=== PATIENT | female | born 1955 | race Two or more races ===

== ENCOUNTER 2021-04-09 20:26 | Emergency (ER) | payer MEDICARE, BC ==
[~2021-04-09] VITALS: Ht 165.1 cm; Wt 65.3 kg
--- NOTE | 2021-04-09 20:31 | NUR ---
PT FALGUNI FROM SNF C/O UNWITNESSED FALL. SNF REQUESTING FOR CT AND XRAY OF R TOE. PT PLACED IN BED 10 ON MONITOR AND PULSE OX. VSS. AWAITING ER MD FOR EVAL AND ORDERS.
--- NOTE | 2021-04-09 20:45 | NUR ---
PEEL OVEN TENDER AT BEDSIDE FOR BLOOD WORK.
[2021-04-09 20:57] LABS: EOSINOPHILS % (AUTO) 6.5 % (0.0-6.0); HEMATOCRIT 34 % (33-45); HEMOGLOBIN 11.4 g/dL (11.5-14.8); LYMPHOCYTES # (AUTO) 1.8 K/uL (0.8-4.8); LYMPHOCYTES % (AUTO) 34.8 % (20.0-44.0); MEAN CORPUSCULAR HGB CONC 33 g/dl (31.0-36.0); MEAN CORPUSCULAR VOLUME 93 fL (82-100); MONOCYTES # (AUTO) 0.5 K/uL (0.1-1.30); MONOCYTES % (AUTO) 10.1 % (2.0-12.0); NEUTROPHILS # (AUTO) 2.4 K/uL (1.8-8.9); NEUTROPHILS % (AUTO) 47.6 % (43.0-81.0); PLATELET COUNT (AUTO) 223 K/uL (150-450); WHITE BLOOD COUNT (AUTO) 5.1 K/uL (4.3-11.0)
[2021-04-09 21:04] LABS: CALCIUM, SERUM 10.5 mg/dL (8.5-10.1); CREATININE 0.6 mg/dL (0.6-1.3); POTASSIUM 3.6 mmol/L (3.5-5.1)
--- NOTE | 2021-04-09 22:03 | NUR ---
TRANSPORT CALLED [facility] 30 MINS.
--- NOTE | 2021-04-09 22:08 | NUR ---
CALLED [facility], SPOKE TO RIC RIZZO FOR UPDATE. AWARE PT WILL BE DISCHARGED.
--- NOTE | 2021-04-09 22:32 | NUR ---
SPOKE TO MR KIRBY () REGARDING UPDATE.
--- NOTE | 2021-04-09 23:14 | NUR ---
PT WAS PICKED UP BY [facility] AND TRANSFERRED BACK TO THE FACILITY IN STABLE CONDISION
[2021-04-09 23:48] VITALS: BP 116/72
== END 2021-04-09 23:48 | disposition home or self-care (01) ==
LOC: ER 20:28
DX: S09.8XXA Other specified injuries of head, initial encounter (principal); M79.675 Pain in left toe(s); I48.91 Unspecified atrial fibrillation; E11.9 Type 2 diabetes mellitus without complications; Z91.013 Allergy to seafood; W19.XXXA Unspecified fall, initial encounter; Y93.89 Activity, other specified; Y92.89 Other specified places as the place of occurrence of the external cause; Y99.8 Other external cause status
CPT/HCPCS: 36415; 70450-TC; 71045-TC; 72125-TC; 73660-TC; 80048-TC; 85025-TC; 85730-TC

== ENCOUNTER 2021-04-24 14:57 | Inpatient (IN) | payer MEDICARE, BC ==
[~2021-04-24] VITALS: Ht 165.1 cm; Wt 64.9 kg
[2021-04-24] MEDS ORDERED: ACET650S26 GT (15:49)
[2021-04-24] MEDS ORDERED: AMIN30LI2 GT (15:49)
[2021-04-24] MEDS ORDERED: MULT-754 GT (15:49)
[2021-04-24] MEDS ORDERED: SENN-291 GT (15:49)
[2021-04-24] MEDS ORDERED: METO-295 GT (15:49)
[2021-04-24] MEDS ORDERED: BUSP5TAB3 GT (15:49)
[2021-04-24] MEDS ORDERED: ASCO-352 GT (15:49)
[2021-04-24] MEDS ORDERED: ASPI-992 GT (15:49)
[2021-04-24] MEDS ORDERED: BISA10SU61 RC (15:49)
[2021-04-24] MEDS ORDERED: LEVE100S GT (15:49)
[2021-04-24] MEDS ORDERED: HEPA500013 SQ (15:49)
[2021-04-24] MEDS ORDERED: HYDR-4303 GT (15:49)
[2021-04-24] MEDS ORDERED: POLY17PO4 GT (15:49)
[2021-04-24] MEDS ORDERED: ALBU18HF2 INH (15:49)
[2021-04-24] MEDS ORDERED: LACT10SO3 GT (15:49)
[2021-04-24] MEDS ORDERED: NA P133E RC (15:49)
[2021-04-24] MEDS ORDERED: METO50TA16 GT (15:49)
[2021-04-24] MEDS ORDERED: OMEP20CA15 GT (15:49)
[2021-04-24] MEDS ORDERED: PSYLLIUM HUSK GT (15:52)
[2021-04-24] MEDS ORDERED: potassium chloride GT (15:52)
--- NOTE | 2021-04-24 16:00 | NUR ---
TO ER BED 4, PLACED ON A GOWN AND MONITOR, AWAITING MD EVAL. MORRISON
--- NOTE | 2021-04-24 16:27 | NUR ---
DR HAGER AT BEDSIDE, WAITING FOR FURTHER ORDERS
[2021-04-24 17:12] LABS: BASOPHILS # (AUTO) 0.1 K/uL (0.0-0.2); BASOPHILS % (AUTO) 0.8 % (0.0-2.0); EOSINOPHILS % (AUTO) 3.3 % (0.0-6.0); HEMATOCRIT 33 % (33-45); HEMOGLOBIN 11.2 g/dL (11.5-14.8); LYMPHOCYTES # (AUTO) 1.4 K/uL (0.8-4.8); LYMPHOCYTES % (AUTO) 15.2 % (20.0-44.0); MEAN CORPUSCULAR HGB CONC 34 g/dl (31.0-36.0); MEAN CORPUSCULAR VOLUME 93 fL (82-100); MONOCYTES # (AUTO) 0.8 K/uL (0.1-1.30); NEUTROPHILS # (AUTO) 6.9 K/uL (1.8-8.9); NEUTROPHILS % (AUTO) 72.7 % (43.0-81.0); PLATELET COUNT (AUTO) 265 K/uL (150-450); RED BLOOD CELL COUNT(AUTO) 3.54 MIL/uL (4.0-5.2); WHITE BLOOD COUNT (AUTO) 9.5 K/uL (4.3-11.0)
[2021-04-24 17:20] LABS: CALCIUM, SERUM 10.2 mg/dL (8.5-10.1); CREATININE 0.7 mg/dL (0.6-1.3); POTASSIUM 3.9 mmol/L (3.5-5.1)
[2021-04-24] MEDS ORDERED: IV NS 0.9% 500 ML IV ONE (18:00)
--- NOTE | 2021-04-24 18:26 | NUR ---
CALLED DR. TODD [phone] X [phone]
--- NOTE | 2021-04-24 18:48 | NUR ---
covid 19 swab collected and sent to lab.
--- NOTE | 2021-04-24 18:51 | NUR ---
BED ASSIGNED= 107
--- NOTE | 2021-04-24 19:21 | NUR ---
TRY TO GIVE REPORT TO TELE 107 BUT RN STILL BUSY ON ENDORSEMENT WILL TRY AGAIN LATER
[2021-04-24] MEDS ORDERED: HYDROCODONE/APAP 5/325MG TABLET GT PRN (19:30)
--- NOTE | 2021-04-24 19:34 | NUR ---
REPORT GIVEN TO ZACHARY RIZZO FOR [facility]
[2021-04-24 19:45] LABS: BILIRUBIN,URINE NEGATIVE (NEGATIVE); COLOR,URINE YELLOW (YELLOW); LEUKOCYTE ESTERASE ,URINE LARGE (NEGATIVE); NITRITE, URINE NEGATIVE (NEGATIVE); PH,URINE 7.5 (5.0-8.0); PROTEIN,URINE NEGATIVE (NEGATIVE); UGLUCOSE NEGATIVE (NEGATIVE); UROBILINOGEN,URINE 0.2 EU/dL (0.2)
[2021-04-24 19:51] LABS: BACTERIA,URINE Few /HPF (None Seen); SQUAMOUS EPITHELIAL CELL,UR Few /HPF (None Seen)
[2021-04-24 20:00] VITALS: BP 124/56
--- NOTE | 2021-04-24 20:10 | NUR ---
RN OPENING NOTE ADMIT 66 YEAR OLD FEMALE TO [facility]ESSI UNIT AT ROOM 107,WITH DIAGNOSIS SYNCOPE, AFTER SNF STAFF FOUND HER ON THE FLOOR,ALERT ORIENTED X1 VERBALLY RESPONSIVE ON ROOM AIR 100% IV SITE IS ON RIGHT HAND INTACT PATENT,INCONTINENT TO BOWEL/BLADDER NPO HAS G-TUBE ON ABDOMEN,HAS REDNESS ON RIGHT SITE OF HEAD AND RIGHT FOREHEAD,RIGHT ELBOW BRUISES,TOOK PICTURES AND PUT IN CHART,SAFETY ALARM IS ON,SAFETY MEASURE IMPLEMENTED,BED IN LOW POSITION AND LOCKED CONTINUE TO MONITOR.
[2021-04-24] MEDS ORDERED: LACTULOSE 10 G/15 ML UDC (PYXIS) GT PRN (20:30)
[2021-04-24] MEDS: busPIRone 5 MG TABLET GT SCH (21:19)
[2021-04-24] MEDS: SENNOSIDES 8.6 MG TABLET GT SCH (21:19)
[2021-04-24] MEDS: LEVETIRACETAM SOL (5 ML) 100 MG/ML UDC GT SCH (21:19)
[2021-04-24] MEDS: METOPROLOL TARTRATE 50 MG TABLET GT SCH (21:20)
[2021-04-24] MEDS: POLYETHYLENE GLYCOL 3350 17 GM POWD.PACK GT SCH (21:20)
[2021-04-24] MEDS: HEPARIN SODIUM, PORCINE 5000 UNITS/1 ML VIAL SQ SCH (21:22)
[2021-04-24] MEDS: IV D5/ 0.9% NACL 1,000 ML IV PRN (21:26)
[2021-04-25] VITALS (9 sets, daily range): BP systolic 115–144; BP diastolic 46–64
[2021-04-25] MEDS: METOCLOPRAMIDE HCL 10 MG TABLET GT SCH ×4 (00:20→16:52)
[2021-04-25] MEDS: ALBUTEROL FS 2.5 MG/3 ML VIAL.NEB NEB SCH ×4 (01:30→19:30)
--- NOTE | 2021-04-25 01:40 | NUR ---
RT NOTE HHN TREATMENT NOT GIVEN DUE TO PENDING COVID RESULTS.WILL CONTINUE TO MONITOR.
[2021-04-25] MEDS: busPIRone 5 MG TABLET GT SCH ×3 (04:30→21:26)
[2021-04-25] MEDS ORDERED: BISACODYL SUPP (10 MG) 10 MG/SUPP.RECT SUPP.RECT RC PRN (06:00)
[2021-04-25 06:53] LABS: BASOPHILS # (AUTO) 0.1 K/uL (0.0-0.2); BASOPHILS % (AUTO) 1.3 % (0.0-2.0); EOSINOPHILS % (AUTO) 8.7 % (0.0-6.0); HEMATOCRIT 31 % (33-45); HEMOGLOBIN 10.4 g/dL (11.5-14.8); LYMPHOCYTES # (AUTO) 1.2 K/uL (0.8-4.8); LYMPHOCYTES % (AUTO) 27.4 % (20.0-44.0); MEAN CORPUSCULAR HGB CONC 34 g/dl (31.0-36.0); MEAN CORPUSCULAR VOLUME 93 fL (82-100); MONOCYTES # (AUTO) 0.5 K/uL (0.1-1.30); MONOCYTES % (AUTO) 11.5 % (2.0-12.0); NEUTROPHILS # (AUTO) 2.3 K/uL (1.8-8.9); NEUTROPHILS % (AUTO) 51.1 % (43.0-81.0); PLATELET COUNT (AUTO) 218 K/uL (150-450); RED BLOOD CELL COUNT(AUTO) 3.27 MIL/uL (4.0-5.2); WHITE BLOOD COUNT (AUTO) 4.5 K/uL (4.3-11.0)
--- NOTE | 2021-04-25 06:54 | NUR ---
RN NOTE PATIENT REMAINS ON ALERT ORIENTED X1 VERBALLY RESPONSIVE NO SOB NOT ACUTE DISTRESS NOTED ON ROOM AIR O2:100 IV SITE IS ON RIGHT HAND INTACT PATENT ON IV HYDRATION D5NS 75CC/HR INCONTINENT TO BOWEL/BLADDER,SAFETY MEASURE IMPLEMENTED/ BED IN LOW POSITON AND LOCKED BED ALARM IS ON,ON G-TUBE/NPO MD ORDERED KEPT CLEAN AND DRY ALL THE TIME,ALL NEEDS MET,ENDORSE NEXT COMING SHIFT FOR CONTINUATION OF CARE
[2021-04-25 07:23] LABS: CALCIUM, SERUM 9.6 mg/dL (8.5-10.1); CREATININE 0.7 mg/dL (0.6-1.3)
--- NOTE | 2021-04-25 08:20 | NUR ---
EDUCATION WITH PATIENT TO LEAVE MEDICAL DEVICES IN PLACE, GASTROSTOMY TUBE, IV, HEALTH CONSULTANT. PATIENT CONFUSED ORIENTED TO PERSON. APPEARS TO HAVE HISTORY OF RESPIRATORY FAILURE, OLD TRACH SITE. ABBY COL[place]ADO RN
--- NOTE | 2021-04-25 08:26 | NUR ---
PATIENT SPOUSE CALL AWARE PATIENT IS PENDING PCR TEST IF VISITING PRIOR TO RESULT IT WILL ONLY BE A WINDOW VISIT. ABBY [place]O RN
--- NOTE | 2021-04-25 08:35 | NUR ---
RT NOTE: PATIENT'S ALBUTEROL TREATMENT NOT GIVEN DUE TO PENDING COVID 19(PCR) TEST RESULTS. NO DISTRESS NOTED AT THIS TIME. PATIENT'S SP02=98% ON ROOM AIR. WILL CONTINUE TO MONITOR.
[2021-04-25] MEDS: ASCORBIC ACID 500 MG TABLET GT SCH (08:56)
[2021-04-25] MEDS: METOPROLOL TARTRATE 50 MG TABLET GT SCH ×2 (08:56→21:26)
[2021-04-25] MEDS: MULTIVITAMINS,THERAGRAN 1 UDTAB TABLET GT SCH (08:56)
[2021-04-25] MEDS: ASPIRIN 325 MG TABLET GT SCH (08:56)
[2021-04-25] MEDS: LEVETIRACETAM SOL (5 ML) 100 MG/ML UDC GT SCH ×2 (08:56→21:25)
[2021-04-25] MEDS: POTASSIUM CHLORIDE 20 MEQ POWDER PACKET GT SCH (08:56)
[2021-04-25] MEDS: HEPARIN SODIUM, PORCINE 5000 UNITS/1 ML VIAL SQ SCH ×2 (08:57→21:19)
[2021-04-25] MEDS: PANTOPRAZOLE 40 MG VIAL IV SCH (08:57)
[2021-04-25] MEDS ORDERED: ACETAMINOPHEN 650 MG/20.3 ML UDC GT PRN (09:00)
[2021-04-25] MEDS ORDERED: PANTOPRAZOLE 40 MG VIAL IV SCH (09:00)
--- NOTE | 2021-04-25 16:03 | NUR ---
PATIENT UNABLE TO FOLLOW COMMANDS,GETTING OUT OF BED ,UNSTAEDY GAIT,EXPLAINED FALL RISK PRECAUTION,ON ISO PRECAUTION WAAITS PCR COVID,DR. TODD NOTIFIED,OK TO INITIATE SOFT WRIST FOR SAFETY,WILL CONTINUE TO MONITOR.
[2021-04-25] MEDS ORDERED: HALOPERIDOL LACTATE INJ 5 MG/ML VIAL IM PRN (17:00)
--- NOTE | 2021-04-25 17:24 | NUR ---
Patient removed own IV site x2 this shift. Patient removes restraints in place for safety on bilateral wrists. Patient removes telemetry box on continuos basis despite reminders. aware. Juan Pablo Childs RN
[2021-04-25] MEDS: IV D5/ 0.9% NACL 1,000 ML IV PRN (18:05)
--- NOTE | 2021-04-25 19:40 | NUR ---
RN OPENING NOTES RECD PT IN BED, A/O X1, DROWSY, S/P HALDOL IM. PT RESPONDS TO NAME, PT IS ON ROOM AIR AT THIS TIME, NO SOB NOTED NO RESP DISTRESS. PT IS ON TELE MONITORING PRESENTS WITH NSR HR IN 80S. PT HAS IV RIGHT HAND FLUSHES WELL. IVF D5NS RUNNING ORDERED. ALL NEEDS ATTENDED AT THIS TIME. PT REQUESTS TO GO BACK TO SLEEP. PT DENIES PAIN. SAFETY MEASURES IN PLACE, SITTER DAYAN AT BEDSIDE. HOB ELEVATED. SIDE RAILS UP X2 BED LOCKED IN LOWEST POSITION WITH BED ALARM ON, CALL LIGHT WITHIN REACH. WILL CONT TO MONITOR THROUGHOUT SHIFT CLOSELY.
--- NOTE | 2021-04-25 19:45 | NUR ---
RN NOTE GTUBE AUSCULTATED FOR PLACEMENT, ASPIRATED, 0 RESIDUAL, FLUSHED. CLAMPED. PT HAS ISOLATION PRECAUTIONS IN PLACE FOR PENDING PCR RESULT. WILL CONT TO MONITOR.
[2021-04-25] MEDS: SENNOSIDES 8.6 MG TABLET GT SCH (21:25)
[2021-04-25] MEDS: POLYETHYLENE GLYCOL 3350 17 GM POWD.PACK GT SCH (21:25)
[2021-04-26] VITALS: BP 103/42
[2021-04-26] MEDS: ALBUTEROL FS 2.5 MG/3 ML VIAL.NEB NEB SCH ×2 (01:18→07:35)
[2021-04-26 04:00] VITALS: BP 127/60
[2021-04-26] MEDS: busPIRone 5 MG TABLET GT SCH ×2 (04:39→13:24)
[2021-04-26 06:55] LABS: BASOPHILS % (AUTO) 0.9 % (0.0-2.0); EOSINOPHILS % (AUTO) 7.8 % (0.0-6.0); HEMATOCRIT 30 % (33-45); HEMOGLOBIN 10.2 g/dL (11.5-14.8); LYMPHOCYTES # (AUTO) 1.2 K/uL (0.8-4.8); LYMPHOCYTES % (AUTO) 23.7 % (20.0-44.0); MEAN CORPUSCULAR HGB CONC 34 g/dl (31.0-36.0); MEAN CORPUSCULAR VOLUME 94 fL (82-100); MONOCYTES # (AUTO) 0.5 K/uL (0.1-1.30); MONOCYTES % (AUTO) 10.3 % (2.0-12.0); NEUTROPHILS # (AUTO) 2.9 K/uL (1.8-8.9); NEUTROPHILS % (AUTO) 57.3 % (43.0-81.0); PLATELET COUNT (AUTO) 224 K/uL (150-450)
--- NOTE | 2021-04-26 07:02 | NUR ---
RN CLOSING NOTE NO SIGNIFICANT CHANGES IN PT CONDITION. PT HAS GOTTEN MORE ALERT, BUT STILL DROWSY. REQUESTS TO GO BACK TO BED, PT DOES NOT STAY FOCUSED LONG ENOUGH TO DO AN ORTHOSTATIC BP AT THIS TIME. PT IS STILL ON ROOM AIR. TOLERATING WELL. ALL NEEDS ATTENDED. ALL DUE MEDS GIVEN. PT DENIES PAIN. PT HR IS IN THE 80S AT THIS TIME. NSR. SAFETY MEASURES IN PLACE. HOB. ELEVATED. SIDE RAILS UP X2 BED LOCKED IN LOWEST POSITION. CALL LIGHT WITHIN, WILL ENDORSE TO DAY SHIFT RN, FOR CONTINUATION OF CARE.
[2021-04-26] MEDS: IV D5/ 0.9% NACL 1,000 ML IV PRN (07:08)
[2021-04-26 07:38] LABS: CALCIUM, SERUM 9.5 mg/dL (8.5-10.1); CREATININE 0.7 mg/dL (0.6-1.3); MAGNESIUM 1.9 mg/dL (1.8-2.4); POTASSIUM 3.6 mmol/L (3.5-5.1)
[2021-04-26 08:20] VITALS: BP 120/64
[2021-04-26] MEDS: MULTIVITAMINS,THERAGRAN 1 UDTAB TABLET GT SCH ×2 (08:28→08:39)
[2021-04-26] MEDS: ASCORBIC ACID 500 MG TABLET GT SCH (08:38)
[2021-04-26] MEDS: LEVETIRACETAM SOL (5 ML) 100 MG/ML UDC GT SCH (08:38)
[2021-04-26] MEDS: PANTOPRAZOLE 40 MG VIAL IV SCH (08:38)
[2021-04-26] MEDS: ASPIRIN 325 MG TABLET GT SCH (08:38)
[2021-04-26] MEDS: METOPROLOL TARTRATE 50 MG TABLET GT SCH (08:40)
[2021-04-26] MEDS: POTASSIUM CHLORIDE 20 MEQ POWDER PACKET GT SCH (08:42)
[2021-04-26] MEDS: HEPARIN SODIUM, PORCINE 5000 UNITS/1 ML VIAL SQ SCH (08:46)
[2021-04-26 11:05] VITALS: BP 122/68
[2021-04-26 12:25] VITALS: BP 124/68
--- NOTE | 2021-04-26 15:16 | NUR ---
RN NOTES PATIENT D/C TO [facility] [place] [id number] , REPORT GIVEN TO SARAVANAN RIZZO, IV ON RIGHT HAND D/C NO EXCESSIVE BLEEDING NOTED GAUZE BANDAGE AND TAPE APPLIED WITH PRESSURE, G-TUBE PATENT INTACT, A&O X 2 , ABLE TO AMBULATE WITH HELP AND USE OF WALKER, SAFE TRANSFER FROM BED TO [facility] TO AMBULANCE, PRESENT, ALL DOCUMENTS GIVEN TO EMT AND REPORT GIVEN TO EMT, SAFE TRANSFER FROM HOSPITAL TO AMBULANCE AT THIS TIME.
== END 2021-04-26 15:22 | DRG 640 ==
LOC: ER 16:22 → TELE1 19:55
PROVIDERS: ADMIT Legal Medicine; ATTEND Legal Medicine
DX: E86.0 Dehydration (principal); G93.41 Metabolic encephalopathy; G82.50 Quadriplegia, unspecified; D64.9 Anemia, unspecified; E04.1 Nontoxic single thyroid nodule; G40.909 Epilepsy, unspecified, not intractable, without status epilepticus; E04.2 Nontoxic multinodular goiter; E11.9 Type 2 diabetes mellitus without complications; Z86.73 Personal history of transient ischemic attack (TIA), and cerebral infarction without residual deficits; I48.91 Unspecified atrial fibrillation; K80.20 Calculus of gallbladder without cholecystitis without obstruction; Z91.013 Allergy to seafood; Z79.51 Long term (current) use of inhaled steroids; Z79.82 Long term (current) use of aspirin; Z79.01 Long term (current) use of anticoagulants; Z79.899 Other long term (current) drug therapy; Z93.0 Tracheostomy status; R26.81 Unsteadiness on feet; Z93.1 Gastrostomy status; R29.6 Repeated falls; I25.10 Atherosclerotic heart disease of native coronary artery without angina pectoris; R13.10 Dysphagia, unspecified; Z86.79 Personal history of other diseases of the circulatory system; F03.90 Unspecified dementia, unspecified severity, without behavioral disturbance, psychotic disturbance, mood disturbance, and anxiety; G93.89 Other specified disorders of brain
CPT/HCPCS: 36415; 70450-TC; 70486-TC; 71045-TC; 72125-TC; 80048-TC; 81001; 83735-TC; 84484-TC; 85025-TC; 85730-TC; 87081-TC; 87086-TC; 92526; 92611-TC; 93307-TC; 97112-TC; 97116-TC; 97530-TC; C9113; G0378; J1630; J1644; J1953; J7040; J7042; J8597; U0003

== ENCOUNTER 2021-06-08 22:26 | Emergency (ER) | payer MEDICARE, BC, MEDICAID ==
[~2021-06-08] VITALS: Ht 162.6 cm; Wt 63.5 kg
[~2021-06-08 22:26] MED LIST: ACET650S26 GT; ALBU18HF2 INH; AMIN30LI2 GT; ASCO-352 GT; ASPI-992 GT; BISA10SU61 RC; BUSP5TAB3 GT; HEPA500013 SQ; HYDR-4303 GT; LACT10SO3 GT; LEVE100S GT; METO-295 GT; METO50TA16 GT; MULT-754 GT; NA P133E RC; OMEP20CA15 GT; POLY17PO4 GT; PSYLLIUM HUSK GT; SENN-291 GT; potassium chloride GT
--- NOTE | 2021-06-08 22:36 | NUR ---
Karoline dempsey in [facility] - 06/08/21 at 2238 by KATIE CALLED TO TRIAGE X 2. NO ANSWER. NOT IN WAIT ROOM
--- NOTE | 2021-06-08 22:43 | NUR ---
Note undone in EDM - 06/08/21 at 2301 by REVA PATIENT BIBSELIN FROM [facility] REFERRED BY DR. TODD FOR GENERALIZED WEAKNESS WITH LOW GRADE FEVER OF 99.8 PER FACILITY. PER FACILITY, PATIENT WAS TESTED NEGATIVE TODAY FOR COVID PHOTO TECHNOLOGIST. PATIENT IS AAOX4. DENIES SHORTNESS OF BREATH. BREATHING EVENLY AND UNLABORED ON ROOM AIR. CONNECTED TO THE LEHR STRIPPER. WILL CONTINUE TO MONITOR PATIENT CLOSELY.
--- NOTE | 2021-06-08 22:43 | NUR ---
[facility]. TODD FOR GENERALIZED WEAKNESS WITH LOW GRADE FEVER OF 99.8 PER FACILITY. PER FACILITY, PATIENT WAS TESTED NEGATIVE TODAY FOR COVID HEDGE FUND TRADER. PATIENT IS AAOX1. DENIES SHORTNESS OF BREATH. BREATHING EVENLY AND UNLABORED ON ROOM AIR. CONNECTED TO THE SKEIN MERCERIZING MACHINE OPERATOR. WILL CONTINUE TO MONITOR PATIENT CLOSELY.
--- NOTE | 2021-06-08 22:45 | NUR ---
Note undone in EDM - 06/08/21 at 2309 by MARGIE pt bibpa c/o fever. Pt aaox4 breathing evenly and unlabored. Upon assessment, pt is afebrile 98.4 temp. Pt denies pain. pt attached to monitor and pox. MD at bedside. SKin is warm and dry. Left ac 20g initiated and blood drawn and sent to lab. pt given blanket and call light within reach
--- NOTE | 2021-06-08 23:00 | NUR ---
covid swab sent to lab
[2021-06-08 23:09] LABS: HEMOGLOBIN 10.8 g/dL (11.5-14.8); RED BLOOD CELL COUNT(AUTO) 3.41 MIL/uL (4.0-5.2)
[2021-06-08 23:12] LABS: BASOPHILS % (AUTO) 0.6 % (0.0-2.0); CALCIUM, SERUM 10.1 mg/dL (8.5-10.1); CARBON DIOXIDE 30 mmol/L (21-32); CHLORIDE 105 mmol/L (98-107); CREATININE 0.8 mg/dL (0.6-1.3); EOSINOPHILS % (AUTO) 4.5 % (0.0-6.0); GLUCOSE 107 mg/dL (74-106); HEMATOCRIT 32 % (33-45); LYMPHOCYTES # (AUTO) 1.3 K/uL (0.8-4.8); LYMPHOCYTES % (AUTO) 21.2 % (20.0-44.0); MEAN CORPUSCULAR HGB CONC 34 g/dl (31.0-36.0); MEAN CORPUSCULAR VOLUME 95 fL (82-100); MONOCYTES # (AUTO) 0.6 K/uL (0.1-1.30); MONOCYTES % (AUTO) 10.3 % (2.0-12.0); NEUTROPHILS # (AUTO) 3.9 K/uL (1.8-8.9); NEUTROPHILS % (AUTO) 63.4 % (43.0-81.0); PLATELET COUNT (AUTO) 166 K/uL (150-450); POTASSIUM 4.4 mmol/L (3.5-5.1); SODIUM SERUM 141 mmol/L (136-145); UREA NITROGEN, BLOOD 19 mg/dL (7-18); WHITE BLOOD COUNT (AUTO) 6.1 K/uL (4.3-11.0)
[2021-06-08 23:24] LABS: ALANINE AMINOTRANSFERASE 143 U/L (12-78); ALBUMIN 2.9 g/dL (3.4-5.0); ALKALINE PHOSPHATASE 447 U/L (46-116); ASPARTATE AMINOTRANSFERASE 31 U/L (15-37); BILIRUBIN,DIRECT 0.2 mg/dL (0.0-0.2); BILIRUBIN,TOTAL 0.5 mg/dL (0.2-1.0)
--- NOTE | 2021-06-08 23:29 | NUR ---
urine sent to lab
[2021-06-08 23:46] LABS: BILIRUBIN,URINE Negative (NEGATIVE); COLOR,URINE YELLOW (YELLOW); LEUKOCYTE ESTERASE ,URINE Trace (NEGATIVE); NITRITE, URINE Negative (NEGATIVE); PROTEIN,URINE Negative (NEGATIVE); UGLUCOSE Negative (NEGATIVE); UROBILINOGEN,URINE 0.2 EU/dL (0.2)
--- NOTE | 2021-06-09 00:28 | NUR ---
REPORT GIVEN TO STAFF AT [facility] FOR [facility].
[2021-06-09 00:32] LABS: BACTERIA,URINE Few /HPF (None Seen); SQUAMOUS EPITHELIAL CELL,UR Few /HPF (None Seen)
--- NOTE | 2021-06-09 00:33 | NUR ---
CALLED [facility], ETA 2.5HRS ARRIVAL
[2021-06-09] MEDS ORDERED: NITR100C6 PO (00:36)
[2021-06-09] MEDS ORDERED: NITROFURANTOIN/NITROFURAN MONOHYDRATE 100 MG CAPSULE ONE (00:44)
[2021-06-09] MEDS ORDERED: NITROFURANTOIN/NITROFURAN MONOHYDRATE 100 MG CAPSULE PO ONE (01:00)
--- NOTE | 2021-06-09 01:37 | NUR ---
REPORT GIVEN TO [facility] TEAM FOR [facility].
[2021-06-09 01:59] VITALS: BP 108/55
== END 2021-06-09 01:37 ==
LOC: ER 22:29
DX: N39.0 Urinary tract infection, site not specified (principal); I10 Essential (primary) hypertension; Z20.822 Contact with and (suspected) exposure to COVID-19; E11.9 Type 2 diabetes mellitus without complications; I69.065 Other paralytic syndrome following nontraumatic subarachnoid hemorrhage, bilateral; Z86.16 Personal history of COVID-19; G82.50 Quadriplegia, unspecified; I67.5 Moyamoya disease; I48.91 Unspecified atrial fibrillation; Z79.01 Long term (current) use of anticoagulants; Z93.1 Gastrostomy status
CPT/HCPCS: 36415; 71045-TC; 80048-TC; 80076-TC; 81001; 83605-TC; 83880; 84484-TC; 85025-TC; 85730-TC; 87040-TC; 87086-TC; C9803